=== PATIENT | male | born 1950 | race Caucasian/White ===

== ENCOUNTER → 2017-08-22 08:39 | Emergency (ER) | payer MEDICARE ==
[~2017-08-22 08:39] MED LIST: diPHENhydraMINE IV* 50 MG/ML 1 ml VIAL (BENADRYL) IV ONE
[2017-08-22 10:38] LABS: ABS Basophils 0.1 10^3/ul (0-0.2); ABS Eosinophils 0.1 10^3/ul (0-0.6); ABS Lymphocytes 1.3 10^3/ul (1.0-4.8); ABS Monocytes 0.3 10^3/ul (0-0.8); ABS Neutrophils 3.1 10^3/ul (1.5-7.7); ABS Nucleated RBC 0 10^3/ul; Eosinophil % 1.9 % (0-6); Hematocrit 39 % (42-52); Lymphocyte % 26.3 % (25-47); Mean Corpuscular HGB Conc 33 g/dl (31-36); Mean Corpuscular Hemoglobin 28 pg (27-31); Mean Corpuscular Volume 85 fL (80-94); Mean Platelet Volume 7.8 um3 (7.4-10.4); Nucleated Red Blood Cells % 0.1; Platelet Count 205 10^3/ul (150-450); Red Blood Count 4.64 10^6/ul (4.0-5.4); Red Cell Distribution Width 14 % (10.5-15)
[2017-08-22 10:48] LABS: INR 0.97 (0.77-1.02)
[2017-08-22 11:06] LABS: EGFR Non-African American 90.2 (>60)
--- NOTE | 2017-08-22 11:45 | RAD ---
HISTORY: Left foot drop COMPARISONS: None TECHNIQUE: Multiple contiguous axial CT scans were obtained of the lumbar spine without intravenous contrast, with coronal and sagittal multiplanar reformations. FINDINGS: SPINAL CANAL: Evaluation of the central canal is limited on CT technique; however, there is no obvious canalicular mass or epidural hemorrhage. ALIGNMENT: The alignment is normal. VERTEBRAL BODIES: There is mild anterolateral marginal osteophyte formation. Incidentally noted is a small dysraphic defect of S1. JOINTS: There is mild facet osteoarthritis. MUSCULATURE: Unremarkable INTERVERTEBRAL DISCS: There is diffuse loss of intervertebral disc height throughout the spine. AXIAL IMAGES: T12-L1: There is no osseous neural foraminal narrowing or central canal stenosis. L1-L2: There is no osseous neural foraminal narrowing or central canal stenosis. L2-L3: There is mild disc bulge with marginal osteophyte formation at the neural foramina bilaterally. There is moderate bilateral neural foraminal narrowing. There is mild narrowing of central canal. L3-L4: There is broad based disc bulge with marginal osteophyte reformation of the neural foramina bilaterally. There is moderate bilateral neuroforaminal narrowing. There is mild narrowing of the central canal. L4-L5: There is bilateral facet hypertrophy. There is marginal osteophyte formation at the neural foramina bilaterally. There is broad-based disc bulge. There is severe bilateral neuroforaminal narrowing. There is moderate narrowing of the central canal. L5-S1: There is broad-based disc bulge. There is marginal osteophyte formation at the neural canal bilaterally. There is moderate bilateral neuroforaminal narrowing. There is mild narrowing of the central canal. SOFT TISSUES: The visualized soft tissues of the abdomen are unremarkable. OTHER: None IMPRESSION: 1. DEGENERATIVE DISC DISEASE AND OSTEOARTHRITIS. 2. THERE IS MODERATE NARROWING OF THE CENTRAL CANAL AT L4-L5 WITH MILD NARROWING AT L2-L3, L3-L4, AND L5-S1. 3. THERE IS MULTILEVEL NEURAL FORAMINAL NARROWING DESCRIBED ABOVE.
--- NOTE | 2017-08-22 15:11 | ED ---
Stacy Hoyos Thomas, scribed for Bruno Andujar MD on 08/22/17 at 1021 . Complex/Multi-Sys Presentation - HPI Summary HPI Summary: The patient is a 67 year old male with a history of Parkinsons disease. After falling asleep last night, he woke up at 02:00 with left leg wobbliness. He is unable to dorsiflex his left ankle. He complains of a sensation that his left leg is asleep. He did not take his Parkinsons medication yesterday night. He complains of chronic back pain for the last year, worse in the last two weeks. He denies any changes from baseline in his upper extremities or speech. He denies fevers, chills, cough, chest congestion, and diarrhea. - History Of Current Complaint Chief Complaint: EDNeurologicalDeficit Time Seen by Provider: 08/22/17 09:28 Hx Obtained From: Patient Onset/Duration: Lasting Hours, Still Present Timing: Constant Severity Initially: Mild Aggravating Factor(s): None Alleviating Factor(s): None Associated Signs And Symptoms: Positive: Other - Motor deficit, back pain; NEGATIVE: aphasia, fever, chills, cough, chest congestion, diarrhea - Allergies/Home Medications Allergies/Adverse Reactions: Allergies Allergy/AdvReac Type Severity Reaction Status Date / Time No Known Allergies Allergy Verified 08/22/17 10:24 Home Medications: Home Medications Atorvastatin* [Lipitor*] 10 mg PO DAILY 08/22/17 [History Confirmed 08/22/17] Bupropion XL* [Wellbutrin XL *] 150 mg PO DAILY 08/22/17 [History Confirmed ] Carbidopa/Levodop 25/100 MG(*) [Sinemet 25/100 TAB(*)] 1 tab PO TID 08/22/17 [ History Confirmed 08/22/17] Levothyroxine TAB* [Synthroid TAB*] 75 mcg PO DAILY 08/22/17 [History Confirmed 08/22/17] Naproxen Sodium [Aleve] 220 mg PO Q6HR PRN 08/22/17 [History Confirmed 08/22/17] Sertraline* [Zoloft*] 100 mg PO DAILY 08/22/17 [History Confirmed 08/22/17] PMH/Surg Hx/FS Hx/Imm Hx Sensory History: Denies: Hx Deafness EENT History: Denies: Hx Deafness Neurological History: Reports: Other Neuro Impairments/Disorders - Hx Parkinson - Surgical History Surgery Procedure, Year, and Place: deep brain stimulator Infectious Disease History: No Infectious Disease History: Denies: Traveled Outside the [place] in Last 30 Days - Family History Known Family History: Negative: Blood Disorder - Social History Alcohol Use: Occasionally Substance Use Type: Reports: None Smoking Status (MU): Never Smoked Tobacco Review of Systems Negative: Fever, Chills Negative: Cough, Other - chest congestion Negative: Diarrhea Positive: Other - back pain Neurological: Negative - aphasia, Other Positive: Weakness - Motor deficit All Other Systems Reviewed And Are Negative: Yes Physical Exam - Summary Physical Exam Summary: General: well-appearing, no pain distress Skin: warm, color reflects adequate perfusion, dry Head: normal Eyes: EOMI, THONG ENT: normal Neck: supple, nontender Respiratory: CTA, breath sounds present Cardiovascular: RRR Abdomen: soft, nontender Bowel: present Musculoskeletal: normal, strength/ROM intact. He does not have any pain along the lateral aspect of the leg. Neurological: A&O x3. He is unable to dorsiflex with his left ankle. Psychological: affect/mood appropriate Triage Information Reviewed: Yes Vital Signs On Initial Exam: Initial Vitals Temp Pulse Resp BP Pulse Ox 98.1 F 76 16 147/73 94 08/22/17 08:42 08/22/17 08:42 08/22/17 08:42 08/22/17 08:42 08/22/17 08:42 Vital Signs Reviewed: Yes Diagnostics - Vital Signs Vital Signs Temp Pulse Resp BP Pulse Ox 08/22/17 08:42 98.1 F 76 16 147/73 94 - Laboratory Lab Results: Lab Results 08/22/17 08/22/17 08/22/17 Range/Units 10:30 10:30 10:30 WBC 5.0 (3.5-10.8) 10^3/ul RBC 4.64 (4.0-5.4) 10^6/ul Hgb 13.0 L (14.0-18.0) g/dl Hct 39 L (42-52) % MCV 85 (80-94) fL MCH 28 (27-31) pg MCHC 33 (31-36) g/dl RDW 14 (10.5-15) % Plt Count 205 (150-450) 10^3/ul MPV 7.8 (7.4-10.4) um3 Neut % (Auto) 63.3 (38-83) % Lymph % (Auto) 26.3 (25-47) % [place] % (Auto) 6.8 (0-7) % Eos % (Auto) 1.9 (0-6) % Baso % (Auto) 1.7 (0-2) % Absolute Neuts (auto) 3.1 (1.5-7.7) 10^3/ul Absolute Lymphs (auto) 1.3 (1.0-4.8) 10^3/ul Absolute Monos (auto) 0.3 (0-0.8) 10^3/ul Absolute Eos (auto) 0.1 (0-0.6) 10^3/ul Absolute Basos (auto) 0.1 (0-0.2) 10^3/ul Absolute Nucleated RBC 0 10^3/ul Nucleated RBC % 0.1 INR (Anticoag Therapy) 0.97 (0.77-1.02) APTT 28.1 (26.0-36.3) seconds Sodium 141 (139-145) mmol/L Potassium 4.4 (3.5-5.0) mmol/L Chloride 107 (101-111) mmol/L Carbon Dioxide 30 (22-32) mmol/L Anion Gap 4 (2-11) mmol/L BUN 19 (6-24) mg/dL Creatinine 0.85 (0.67-1.17) mg/dL Est GFR ( Amer) 116.0 (>60) Est GFR (Non-Af Amer) 90.2 (>60) BUN/Creatinine Ratio 22.4 H (8-20) Glucose 127 H (70-100) mg/dL Calcium 8.8 (8.6-10.3) mg/dL Total Bilirubin 0.30 (0.2-1.0) mg/dL AST 16 (13-39) U/L ALT 19 (7-52) U/L Alkaline Phosphatase 82 (34-104) U/L C-Reactive Protein 9.79 H (< 5.00) mg/L Total Protein 6.4 (6.4-8.9) g/dL Albumin 3.9 (3.2-5.2) g/dL Globulin 2.5 (2-4) g/dL Albumin/Globulin Ratio 1.6 (1-3) Result Diagrams: 08/22/17 10:30 08/22/17 10:30 Lab Statement: Any lab studies that have been ordered have been reviewed, and results considered in the medical decision making process. - CT Lumbar Spine CT CT Interpretation: No Acute Changes - IMPRESSION: 1. DEGENERATIVE DISC DISEASE AND OSTEOARTHRITIS. 2. THERE IS MODERATE NARROWING OF THE CENTRAL CANAL AT L4-L5 WITH MILD NARROWING AT L2-L3, L3-L4, AND L5-S1. 3. THERE IS MULTILEVEL NEURAL FORAMINAL NARROWING DESCRIBED ABOVE. Dr. Andujar has reviewed this report. CT Interpretation Completed By: Radiologist Complex Multi-Symp Course/Dx Course Of Treatment: DISCUSSED WITH DR MCGRAW. PATIENT UNABLE TO HAVE MRI DUE TO NERVE STIMULATOR. THE ONLY NEUROLOGIC DEFICIT IS THE INABILITY TO LEFT FOOT DORSIFLEX. NO SENSATION DEFICIT ON EXAM. NO ARM/FACE/SPEECH/VISION FINDINGS NO DIFFICULTY WITH PERINEAL NUMBNESS OR DIFFICULTY CONTROLLING BOWEL OR BLADDER. EXPECT A PERIFERAL NERVE CAUSE. CT REVIEWED BY DR CULLEN WHO DOES NOT SEE A NEUROSURGICAL EMERGENCY AT THIS TIME. HE RECOMMENDS OUT PATIENT FOLLOW UP. PATIENT WILL F/U WITH DR CORONEL, NEUROLOGY, AND DR CULLEN, NEUROSURGERY. HE WILL RETURN TO THE ED WITH ANY WORSENING SX. - Diagnoses Provider Diagnoses: Left foot drop - Physician Notifications Discussed Care Of Patient With: Joseph Mcgraw Time Discussed With Above Provider: 10:24 Instructed by Provider To: Other - I discussed the case with Dr. Mcgraw, neurology. He recommends CT Lumbosacral. Dr. Cullen, neurosurgery, reviewed the films and does not see an emergent neurosurgical need at this time. Discharge - Sign-Out/Discharge Documenting (check all that apply): Discharge - Discharge Plan Condition: Stable Disposition: HOME Patient Education Materials: Foot Drop (ED) Referrals: Kaylie Jones MD [Primary Care Provider] - Sandra Coronel MD [Family Provider] - Mahendra Cullen MD [Medical Doctor] - Additional Instructions: FOLLOW UP WITH NEUROLOGY, DR CORONEL, AND NEUROSURGERY, DR CULLEN. RETURN TO THE EMERGENCY DEPARTMENT FOR ANY WORSENING OF YOUR CONDITION OR QUESTIONS OR CONCERNS. - Billing Disposition and Condition Condition: STABLE Disposition: HOME The documentation as recorded by the Stacy blood Thomas accurately reflects the service I personally performed and the decisions made by me, Bruno Andujar MD.
[2017-08-22 15:50] VITALS: BP 136/80
== END | disposition home or self-care (01) ==
LOC: ED 08:39
DX: M21.372 Foot drop, left foot (principal); M54.9 Dorsalgia, unspecified; M51.34 Other intervertebral disc degeneration, thoracic region; R53.1 Weakness
CPT/HCPCS: 36415; 72131; 80053; 85025; 85610; 85730; 86140; 96374; 99283